=== PATIENT | male | born 1950 | race Caucasian/White ===

== ENCOUNTER 2017-09-28 07:02 | Day surgery (SDC) | payer MEDICARE ==
[~2017-09-28 07:02] MED LIST: RINGER'S SOLUTION,LACTATED 1,000 ML IV PRN
[2017-09-28] MEDS ORDERED: RINGER'S SOLUTION,LACTATED 1,000 ML IV ONE (08:00)
--- NOTE | 2017-09-28 09:01 | OR ---
Operative Report - Dictated Report Narrative: Date: 09/28/2017 Preoperative diagnosis screening for colon cancer Postoperative diagnosis: Single diverticulum of the descending colon, sessile polyp at 55 cm/descending colon, hypertrophied anal papilla Procedure: Total colonoscopy with biopsy Staff surgeon: Elmer Suarez MD Anesthesia: MAC per LICENSED PROSTHETIST EBL: Minimal Specimens: Polyp at 55 cm/descending colon Description of procedure: After informed consent and appropriate sedation the patient was placed in left lateral decubitus position. Flexible fiberoptic video colonoscope was introduced and advanced under direct vision without difficulty to the cecum. The usual landmarks were identified. Preparation was good and excellent views were obtained. The findings were of a normal cecum, ascending colon except for one diverticulum , hepatic flexure, transverse colon, splenic flexure, descending colon demonstrated a sessile 5 mm polyp that was biopsied with cold forceps and then destroyed with electrocautery, normal sigmoid colon, and rectum. Retroflexed view demonstrated a hypertrophied anal papilla. The mucosal collar, vasculature , and texture were normal throughout. No suspicious masses were seen. The patient tolerated the procedure well without apparent complications and was discharged from the endoscopy suite in stable condition.
[2017-09-28 09:48] VITALS: BP 157/69
== END 2017-09-28 07:03 | disposition home or self-care (01) ==
LOC: AMB 07:02
PROVIDERS: ATTEND Specialist
PROC: 0DBM8ZX Excision of Descending Colon, Via Natural or Artificial Opening Endoscopic, Diagnostic (ICD-10-PCS; principal; 2017-09-28)
DX: Z12.11 Encounter for screening for malignant neoplasm of colon (principal); K63.5 Polyp of colon; D12.9 Benign neoplasm of anus and anal canal; K57.30 Diverticulosis of large intestine without perforation or abscess without bleeding